=== PATIENT | male | born 1945 | race Hispanic/Latino ===

== ENCOUNTER 2016-12-31 16:49 | Emergency (ER) | payer MEDICARE, OTHER ==
[2016-12-31 16:57] VITALS: BMI 22.7
[2016-12-31 17:02] VITALS: TEMP 97.5
[2016-12-31] MEDS ORDERED: Sodium Chloride 0.9% 1,000 ML IV ONE (17:19)
[2016-12-31] MEDS ORDERED: Sodium Chloride 0.9% 1,000 ML ONE (17:52)
[2016-12-31 17:56] LABS: BASO % 0.3 % (0.0-2.0); EOS % 0.3 % (0.0-4.0); HEMATOCRIT 43.1 % (35.0-51.0); LYMPH # 1.9 K/uL (1.0-4.3); LYMPH % 13.3 % (20.0-40.0); MEAN CELL VOLUME 96.9 fL (80.0-94.0); MEAN CORPUSCULAR HEMOGLOBIN 31.9 pg (27.0-31.0); MEAN CORPUSCULAR HGB CONC 32.9 g/dL (33.0-37.0); MEAN PLATELET VOLUME 8.9 fL (7.2-11.7); RED CELL DISTRIBUTION WIDTH 13.2 % (11.5-14.5); WHITE BLOOD COUNT 14.2 K/uL (4.8-10.8)
[2016-12-31 17:57] LABS: CHLORIDE 103 mmol/L (98-107); POTASSIUM 4.9 mmol/L (3.6-5.2); SODIUM 135 mmol/L (132-148)
[2016-12-31 17:59] LABS: GFR AFRICAN-AMERICAN > 60
[2016-12-31 18:00] LABS: ALKALINE PHOSPHATASE 65 U/L (38-126); ALT/SGPT 30 U/L (21-72); AST/SGOT 26 U/L (17-59); BILIRUBIN,TOTAL 0.9 mg/dL (0.2-1.3); BLOOD UREA NITROGEN 23 mg/dL (9-20); CALCIUM 8.8 mg/dl (8.6-10.4); CARBON DIOXIDE 20 mmol/L (22-30); GLUCOSE,RANDOM 94 mg/dL (75-110)
[2016-12-31 18:19] LABS: RBC URINE 1 /hpf (0-3); URINE BACTERIA OCC (<OCC); URINE BILIRUBIN NEGATIVE (NEGATIVE); URINE BLOOD NEGATIVE (NEGATIVE); URINE COLOR Yellow (YELLOW); URINE GLUCOSE (UA) NORMAL (Normal); URINE KETONE TRACE mg/dL (NEGATIVE); URINE LEUKOCYTE ESTERASE TRACE Leu/uL (Negative); URINE PROTEIN NEGATIVE (NEGATIVE); URINE UROBILINOGEN NORMAL mg/dL (0.2-1.0); WBC URINE 5 /hpf (0-5)
--- NOTE | 2016-12-31 19:40 | C.PDOC ---
History Of Present Illness Pt c/o left sided abdominal pain. He was seen by his PMD and an outpt CT scan of abdomen/pelvis was performed this week that showed no acute findings. Pt was nonetheless placed on antibiotics (Cipro and Flagyl) by his PMD. Time Seen by Provider: 12/31/16 17:04 Chief Complaint (Nursing): Abdominal Pain History Per: Patient, Family Onset/Duration Of Symptoms: Days (about 2 weeks) Current Symptoms Are (Timing): Still Present Severity: Moderate Location Of Pain/Discomfort: LUQ, LLQ Quality Of Discomfort: Unable To Describe, "Pain" Associated Symptoms: Constipation Alleviating Factors: None Last Bowel Movement: Days Ago (3) Additional History Per: Prior Records Past Medical History Reviewed: Historical Data, Nursing Documentation, Vital Signs Vital Signs: Last Vital Signs Temp 97.5 F L 12/31/16 16:57 Pulse 89 12/31/16 16:57 Resp 16 12/31/16 16:57 BP 182/92 H 12/31/16 16:57 Pulse Ox 97 12/31/16 16:57 - Medical History PMH: Diverticulitis, HTN Surgical History: Cholecystectomy Family History: States: Unknown Family Hx - Social History Hx Tobacco Use: Yes Hx Alcohol Use: No Hx Substance Use: No - Immunization History Hx Tetanus Toxoid Vaccination: No Hx Influenza Vaccination: No Hx Pneumococcal Vaccination: No Review Of Systems Except As Marked, All Systems Reviewed And Found Negative. Constitutional: Negative for: Fever, Weakness Cardiovascular: Negative for: Chest Pain Respiratory: Negative for: Shortness of Breath Gastrointestinal: Positive for: Abdominal Pain, Constipation. Negative for: Vomiting, Diarrhea, Melena, Hematochezia, Hematemesis Genitourinary: Negative for: Dysuria Musculoskeletal: Negative for: Neck Pain Skin: Negative for: Rash Neurological: Negative for: Weakness, Numbness, Seizures, Altered Mental Status Physical Exam - Physical Exam Appears: Non-toxic, No Acute Distress Skin: Normal Color, Warm, Dry, No Rash Head: Atraumatic, Normacephalic Eye(s): bilateral: Normal Inspection, PERRL, EOMI Neck: Normal ROM, Supple Cardiovascular: Rhythm Regular Respiratory: Normal Breath Sounds, No Accessory Muscle Use Gastrointestinal/Abdominal: Soft, Tenderness (mild nonspecific left sided), No Guarding, No Rebound Rectal: Rectal Tone (wnl), Heme Negative, No Mass, No Tenderness Back: No CVA Tenderness Male Genital: No Testicular Tenderness, No Testicular Swelling, No Inguinal Tenderness, No Inguinal Swelling, No Scrotal Swelling Extremity: Normal ROM Neurological/Psych: Oriented x3, Normal Motor, Normal Sensation ED Course And Treatment - Laboratory Results Result Diagrams: 12/31/16 17:36 12/31/16 17:36 O2 Sat by Pulse Oximetry: 97 Pulse Ox Interpretation: Normal Progress Note: Abdominal pain resolved after enema and bowel movement. Reassessment Condition: Improved Disposition Counseled Patient/Family Regarding: Studies Performed, Diagnosis, Need For Followup, Rx Given, Smoking Cessation - Disposition Referrals: Alexander Edwards DO [Staff Provider] - Allen Pina MD [Staff Provider] - Disposition: HOME/ ROUTINE Disposition Time: 19:42 Condition: IMPROVED Additional Instructions: Follow up with your doctor and with a Automation Engineering Technician for further evaluation and treatment. Return to the ER if you develop fever, vomiting, bleeding, worsening of symptoms or if you have any other concerns. Prescriptions: Polyethylene Glycol 3350 [Miralax] 17 gm PO DAILY #7 packet Instructions: Constipation (ED) Forms: [employer] (South [place]ese) - Clinical Impression Clinical Impression: Constipation, Abdominal pain
[2016-12-31 19:53] VITALS: BP 150/80; PULSE 70; RESP 14; O2SAT 98
== END 2016-12-31 19:53 | disposition home or self-care (01) ==
LOC: C.ER 16:49
DX: K59.00 Constipation, unspecified (principal); R10.12 Left upper quadrant pain
CPT/HCPCS: 80053; 81001; 83605; 83690; 85025; 96361; 96374; 96375; 99284; G0328; J1885; J7040

== ENCOUNTER 2017-01-25 07:14 | Day surgery (SDC) | payer MEDICARE, OTHER ==
[2017-01-25 07:42] VITALS: BMI 21.9
--- NOTE | 2017-01-25 08:41 | CP.SDSHP ---
Same Day Surgery H & P - History Proposed Procedure: EGD Pre-Op Diagnosis: Dyspepsia - Previous Medical/Surgical History Cardiac: Hypertension Previous Surgical History: None - Allergies Allergies: Allergies No Known Allergies Allergy (Verified 01/25/17 07:38) - Current Medications Current Medications: See reconciliation sheet - Physical Exam General Appearance: WD WN male in NAD Vital Signs: Vital Signs 01/25/17 07:45 Temperature 97.1 F L Pulse Rate 74 Respiratory 19 Rate Blood Pressure 169/67 H O2 Sat by Pulse 98 Oximetry Mental Status: Alert & Oriented x3 Neuro: WNL Heart: WNL Lungs: WNL GI: WNL - {Optional Preform as Required} Abdomen: WNL - Impression Impression: Dyspepsia Pt. Evaluated Today:Candidate for Anesthesia & Procedure: Yes - Date & Time Date: 01/25/17 Time: 08:41 Short Stay Discharge - Short Stay Discharge Admitting Diagnosis/Reason for Visit: DYSPEPSIA Disposition: HOME/ ROUTINE
[2017-01-25] MEDS ORDERED: Propofol 10 mg/ml Inj (20 ML) ONE (08:52)
[2017-01-25] MEDS ORDERED: Lactated Ringer's 1,000 ML IV ONE (08:58)
[2017-01-25] MEDS ORDERED: ePHEDrine 50 mg/ml Inj ONE (09:25)
[2017-01-25 09:41] VITALS: TEMP 97.3
[2017-01-25 09:54] VITALS: O2SAT 100
[2017-01-25 10:19] VITALS: BP 145/68; PULSE 63; RESP 22
== END 2017-01-25 10:22 | disposition home or self-care (01) ==
LOC: C.ENDO 07:14
PROVIDERS: ATTEND Internal Medicine Gastroenterology
DX: K29.60 Other gastritis without bleeding (principal); I10 Essential (primary) hypertension; B96.81 Helicobacter pylori [H. pylori] as the cause of diseases classified elsewhere
CPT/HCPCS: 43239; 88305; 88312; 88313; 88342; J2704; J7120

== ENCOUNTER 2017-09-06 11:03 | Emergency (ER) | payer MEDICARE, OTHER ==
[2017-09-06 11:03] VITALS: BMI 21.9
--- NOTE | 2017-09-06 12:22 | C.PDOC ---
History Of Present Illness 71 yo male come in for valuation of left ankle pain and swelling gradually developed for 1 week after sustained twisting injury. Pt reports, pain is localized over left ankle, worse with weight bearing. Otherwise, pt denies head injury, LOC, syncope, headache, dizziness, neck pain, CP, denies obvious deformity, weakness, sensory or vascular deficits to left ankle. Ambulate to ED. Time Seen by Provider: 09/06/17 11:33 Chief Complaint (Nursing): Lower Extremity Problem/Injury History Per: Patient Past Medical History Reviewed: Historical Data, Nursing Documentation, Vital Signs Vital Signs: Last Vital Signs Temp 98.1 F 09/06/17 13:49 Pulse 67 09/06/17 13:49 Resp 14 09/06/17 13:49 BP 149/73 09/06/17 13:49 Pulse Ox 100 09/06/17 13:49 - Medical History PMH: COPD (NO MEDICATIONS), Diverticulitis, Emphysema, HTN Denies: Fractures, Chronic Kidney Disease Surgical History: Cholecystectomy Family History: States: Unknown Family Hx - Social History Hx Tobacco Use: Yes Hx Alcohol Use: No Hx Substance Use: No - Immunization History Hx Tetanus Toxoid Vaccination: No Hx Influenza Vaccination: No Hx Pneumococcal Vaccination: No Review Of Systems Except As Marked, All Systems Reviewed And Found Negative. Constitutional: Negative for: Fever, Chills Cardiovascular: Negative for: Chest Pain Gastrointestinal: Negative for: Nausea, Vomiting, Abdominal Pain Genitourinary: Negative for: Dysuria Musculoskeletal: Positive for: Foot Pain, Other (ankle, left). Negative for: Neck Pain, Back Pain Skin: Positive for: Bruising. Negative for: Rash Neurological: Negative for: Weakness, Numbness, Altered Mental Status, Headache , Dizziness Physical Exam - Physical Exam Appears: Well, Non-toxic, No Acute Distress Skin: Normal Color, Warm, Dry, No Rash Head: Atraumatic, Normacephalic Eye(s): bilateral: PERRL Nose: No Discharge Oral Mucosa: Moist, No Drooling Throat: Normal Neck: Trachea Midline, No Midline Cervical Tenderness, No Paracervical Tenderness, No Step Off Deformity, Supple Chest: Symmetrical, No Deformity, No Tenderness Back: No CVA Tenderness, No Vertebral Tenderness, No Paraspinal Tenderness Extremity: Normal ROM (Left ankle), Tenderness (Left ankle over lateral malleolus), No Calf Tenderness, Capillary Refill (less than 2sec to left foot), No Deformity, Swelling (Left lateral malleolus) Neurological/Psych: Oriented x3, Normal Speech, Normal Motor, Normal Sensation, Normal Reflexes ED Course And Treatment O2 Sat by Pulse Oximetry: 99 Pulse Ox Interpretation: Normal - Other Rad left ankle and foot X-Ray: Interpreted by Me, Viewed By Me Interpretation: (+)distal fibular fx Progress Note: On re-eval, pt is afebrile, hemodynamicaly stable. non-toxic. head: AT/NC. Neck: Supple, (-) midline tenderness. LLE: exam c/w left ankle edema, tenderness ove lateral malleolus with trace ecchymoses. FAROM, no defomrity, no neurovascular deficits. neurologicaly intact. Imaging review (+ ) distal fibular fx, spiral of left ankle. Podiatry resident called for consult. case discussed with , long leg splint applied, walker given. Pt advised on course of ds and follow up, and ref. to F/u with Podiatry Clinic for furter eval and tx as need. return to ED if any worsening or new changes. Disposition Counseled Patient/Family Regarding: Studies Performed, Diagnosis, Need For Followup, Rx Given - Disposition Referrals: at [facility] [Outside] Podiatry Clinic [Outside] Disposition: HOME/ ROUTINE Disposition Time: 12:41 Condition: STABLE Additional Instructions: SPlint until seen by Oil Well Directional Surveyor None-weight bearing Take pain medication as need Follow up with Oil Well Directional Surveyor in [facility] on Wednesday from noon-4PM or [facility] for further evaluation and treatment. Return to ED if any worsening or new changes. Prescriptions: traMADol [Ultram] 50 mg PO TID #7 tab Instructions: Ankle Fracture Forms: [employer] (Albanian) - Clinical Impression Clinical Impression: Ankle fracture
--- NOTE | 2017-09-06 12:46 | RAD ---
PROCEDURE: Left Ankle Radiographs. HISTORY: ijnury COMPARISON: None FINDINGS: BONES: There is an oblique nondisplaced fracture of the distal fibular diaphysis above the level of the plafond. No other fracture is identified. JOINTS: Normal. No osteoarthritis. Ankle mortise maintained. Talar dome intact SOFT TISSUES: There is lateral soft tissue swelling. OTHER FINDINGS: None. IMPRESSION: Oblique nondisplaced distal fibular diaphysis fracture.
--- NOTE | 2017-09-06 12:47 | RAD ---
PROCEDURE: Left Foot Radiographs. HISTORY: ijnury COMPARISON: None. FINDINGS: BONES: Normal. No fracture. JOINTS: Normal. SOFT TISSUES: Normal. OTHER FINDINGS: None. IMPRESSION: Normal left foot radiographs.
--- NOTE | 2017-09-06 13:44 | CP.PCM.CON ---
History of Present Illness - History of Present Illness History of Present Illness: Podiatry Consult note for Dr. Rivers 71 year old male with PMHx including HTN and BPH was seen at bedside for left ankle pain. He states that three days ago he fell and hurt his left ankle. He has tried ice and OTC pain medication without much relief. He currently denies any n/v/f/c/sob/cp. Past Patient History - Past Medical History & Family History Past Medical History?: Yes - Past Social History Smoking Status: Light Smoker < 10 Cigarettes Daily - CARDIAC Hx Hypertension: Yes - PULMONARY Hx Chronic Obstructive Pulmonary Disease (COPD): Yes (NO MEDICATIONS) Hx Emphysema: Yes - NEUROLOGICAL Hx Neurological Disorder: No - HEENT Hx HEENT Problems: No - RENAL Hx Chronic Kidney Disease: No - ENDOCRINE/METABOLIC Hx Endocrine Disorders: No - HEMATOLOGICAL/ONCOLOGICAL Hx Blood Disorders: No Hx Blood Transfusions: No Hx Cancer: No - INTEGUMENTARY Hx Dermatological Problems: No - MUSCULOSKELETAL/RHEUMATOLOGICAL Hx Fractures: No - GASTROINTESTINAL Hx Diverticulitis: Yes - GENITOURINARY/GYNECOLOGICAL Hx Genitourinary Disorders: Yes Hx Prostate Cancer: No Hx Prostate Problems: Yes - PSYCHIATRIC Hx Substance Use: No - SURGICAL HISTORY Hx Cholecystectomy: Yes - ANESTHESIA Hx Anesthesia: Yes Hx Anesthesia Reactions: No Hx Malignant Hyperthermia: No Meds Home Medications: Home Medication List Medication Instructions Recorded Confirmed Type traMADol [Ultram] 50 mg PO TID #7 tab 09/06/17 Rx Allergies/Adverse Reactions: Allergies Allergy/AdvReac Type Severity Reaction Status Date / Time No Known Allergies Allergy Verified 09/06/17 11:25 Physical Exam - Constitutional Appears: Well, Non-toxic, No Acute Distress - Extremities Exam Additional comments: left lower extremity focused exam: Vasc: DP and PT pulses palpable 1/4. CFT < 3 seconds to all digits. Skin temperature warm to cool from proximal to distal. Neuro: Gross sensation intact Derm: Edema noted to left lateral ankle. No open lesions no ecchymosis noted. Ortho: tenderness on palpation to left ankle MMT 5/5 for DF, PF, inv, abram - Neurological Exam Neurological exam: Alert, Oriented x3 - Psychiatric Exam Psychiatric exam: Normal Affect, Normal Mood Results - Vital Signs Recent Vital Signs: Last Vital Signs Temp 97.5 F L 09/06/17 11:27 Pulse 80 09/06/17 11:27 Resp 20 09/06/17 11:27 BP 169/86 H 09/06/17 11:27 Pulse Ox 99 09/06/17 12:48 Assessment & Plan - Assessment and Plan (Free Text) Assessment: 71 year old male with left fibular fracture Plan: patient examined and evaluated discussed in detail with attending, Dr. Rivers radiographs reviewed;oblique non-displaced fx of the fibular noted well padded posterior splint applied to patients LLE patient to remain non-WB to LLE with walker patient to keep dressing c/d/i RICE therapy patient to f/u with Dr. Rivers in [facility] next Wednesday
[2017-09-06 13:50] VITALS: BP 149/73; PULSE 67; RESP 14; TEMP 98.1
[2017-09-06 14:39] VITALS: O2SAT 99
== END 2017-09-06 14:36 | disposition home or self-care (01) ==
LOC: C.ER 11:03
DX: S82.492A Other fracture of shaft of left fibula, initial encounter for closed fracture (principal); X50.1XXA Overexertion from prolonged static or awkward postures, initial encounter; Y92.9 Unspecified place or not applicable
CPT/HCPCS: 73610; 73630; 97116; 97161; 99284; G8978; G8979; G8980